=== PATIENT | male | born 1975 | race Two or more races ===

== ENCOUNTER 2019-11-22 09:28 | Outpatient (CLI) | payer OTHER | END 2019-11-22 09:33 | disposition home or self-care (01) | LOC: LAB 09:28 | DX: D50.8 Other iron deficiency anemias (principal); I10 Essential (primary) hypertension; D55.0 Anemia due to glucose-6-phosphate dehydrogenase [G6PD] deficiency; D51.1 Vitamin B12 deficiency anemia due to selective vitamin B12 malabsorption with proteinuria; D51.0 Vitamin B12 deficiency anemia due to intrinsic factor deficiency; E03.8 Other specified hypothyroidism; E06.3 Autoimmune thyroiditis; D51.3 Other dietary vitamin B12 deficiency anemia ==

== ENCOUNTER → 2019-11-22 | Outpatient (CLI) | payer OTHER | END | disposition home or self-care (01) | LOC: SONOGRAMA 10:29 | DX: D51.3 Other dietary vitamin B12 deficiency anemia (principal); E78.2 Mixed hyperlipidemia; E06.3 Autoimmune thyroiditis; E03.8 Other specified hypothyroidism; E04.2 Nontoxic multinodular goiter ==

== ENCOUNTER 2021-03-08 13:11 | Outpatient (CLI) | payer OTHER | END 2021-03-08 13:24 | disposition home or self-care (01) | LOC: SONOGRAMA 13:11 → MAMO-SONO 13:15 → SONOGRAMA 13:24 | PROVIDERS: ATTEND Internal Medicine Hematology & Oncology | DX: E04.2 Nontoxic multinodular goiter (principal); D51.3 Other dietary vitamin B12 deficiency anemia; D53.0 Protein deficiency anemia; E78.2 Mixed hyperlipidemia ==

== ENCOUNTER → 2021-03-12 08:11 | Outpatient (CLI) | payer OTHER | END | disposition home or self-care (01) | LOC: LAB 08:11 | PROVIDERS: ATTEND Internal Medicine Hematology & Oncology | DX: I10 Essential (primary) hypertension (principal); R74.02 Elevation of levels of lactic acid dehydrogenase [LDH]; K76.89 Other specified diseases of liver; R79.9 Abnormal finding of blood chemistry, unspecified; D58.0 Hereditary spherocytosis; E55.9 Vitamin D deficiency, unspecified; R97.8 Other abnormal tumor markers; R97.20 Elevated prostate specific antigen [PSA]; D59.19 Other autoimmune hemolytic anemia; D51.3 Other dietary vitamin B12 deficiency anemia; D53.0 Protein deficiency anemia; E78.2 Mixed hyperlipidemia ==

== ENCOUNTER → 2021-08-10 07:48 | Outpatient (CLI) | payer OTHER | END | disposition home or self-care (01) | LOC: LAB 07:48 | PROVIDERS: ATTEND Internal Medicine Hematology & Oncology | DX: I10 Essential (primary) hypertension (principal); R74.02 Elevation of levels of lactic acid dehydrogenase [LDH]; K76.89 Other specified diseases of liver; R79.89 Other specified abnormal findings of blood chemistry; D50.8 Other iron deficiency anemias; E55.9 Vitamin D deficiency, unspecified; E03.8 Other specified hypothyroidism; D51.3 Other dietary vitamin B12 deficiency anemia; D53.0 Protein deficiency anemia; E78.2 Mixed hyperlipidemia ==

== ENCOUNTER 2025-01-14 06:35 | Outpatient (CLI) | payer OTHER ==
[2025-01-14 07:28] LABS: HEMATOCRIT 38.8 % (39.0-48.0); MEAN CELL VOLUME 85.8 fL (80.0-100.00); MEAN CORPUSCULAR HEMOGLOBIN 28.7 pg (27.00-32.0); MEAN CORPUSCULAR HGB CONC 33.4 g/dl (32.0-36.0); PLATELET COUNT 267 K/uL (150-450); RED BLOOD COUNT 4.52 M/uL (4.00-6.00); RED CELL DISTRIBUTION WIDTH 13.5 % (11.5-14.5)
[2025-01-14 07:33] LABS: PH,URINE 5.5 (5.0-8.0); URINE APPEARANCE Clear; URINE BILIRRUBIN Negative (NEGATIVE); URINE BLOOD Negative; URINE COLOR Yellow; URINE GLUCOSE Negative (NEGATIVE); URINE KETONE Negative (NEGATIVE); URINE LEUKOCYTE Negative; URINE NITRATE Negative; URINE PROTEIN Negative (NEGATIVE); URINE UROBILINOGEN 0.2 E.U./dl
[2025-01-14 07:34] LABS: URINE WBC 1.8 uL (0.0-23.2)
[2025-01-14 07:39] LABS: URINE BACTERIA 0 uL (0.0-1933); URINE CAST 0.14 uL (0.0-1.40); URINE EPITHELIAL CELLS 0.1 uL (0.0-38.8); URINE RBC 1.1 uL (0.0-20.8)
[2025-01-14 08:08] LABS: MANUAL PLATELET COUNT 374
[2025-01-14 08:11] LABS: PLATELET ESTIMATE NORMAL (NORMAL)
[2025-01-14 08:22] LABS: % SATURACION 38.2 % (20-50); BILIRUBIN TOTAL 0.55 mg/dL (0.3-1.2); CALCIUM 8.8 mg/dL (8.5-10.1); CREATININE SERUM 1.1 mg/dL (0.70-1.30); FERRITIN 67.2 NG/ML (26-388); GFR 70.85; GLOBULINA 2.7 G/DL (2.4-3.5); POTASSIUM 4.18 mEq/L (3.5-5.1); T4 FREE 0.94 NG/ML (0.76-1.46); TOTAL PROTEIN 6.7 gm/dL (6.4-8.2); TSH 1.96 uIU/mL (0.358-3.74)
[2025-01-14 11:19] LABS: FOLIC ACID 16.66 ng/ml (4.78-20); VITAMIN D3 25 HYDROXY 48.78 ng/ml (30-120)
== END 2025-01-14 06:42 | disposition home or self-care (01) ==
LOC: LAB 06:35
PROVIDERS: ATTEND Internal Medicine Hematology & Oncology
DX: D51.3 Other dietary vitamin B12 deficiency anemia (principal); D53.0 Protein deficiency anemia; E78.2 Mixed hyperlipidemia; D50.8 Other iron deficiency anemias; R79.9 Abnormal finding of blood chemistry, unspecified; I10 Essential (primary) hypertension; R74.02 Elevation of levels of lactic acid dehydrogenase [LDH]; K76.89 Other specified diseases of liver; E55.9 Vitamin D deficiency, unspecified; E03.8 Other specified hypothyroidism; N39.0 Urinary tract infection, site not specified; R80.9 Proteinuria, unspecified; R94.4 Abnormal results of kidney function studies

== ENCOUNTER 2025-01-28 07:38 | Outpatient (CLI) | payer OTHER ==
[2025-01-28 08:54] LABS: ob NEGATIVE (NEGATIVE)
== END 2025-01-28 07:52 | disposition home or self-care (01) ==
LOC: LAB 07:38
PROVIDERS: ATTEND Internal Medicine Hematology & Oncology
DX: D72.10 Eosinophilia, unspecified (principal); D51.3 Other dietary vitamin B12 deficiency anemia; D53.0 Protein deficiency anemia; E78.2 Mixed hyperlipidemia; D50.8 Other iron deficiency anemias; R19.5 Other fecal abnormalities; Z12.11 Encounter for screening for malignant neoplasm of colon; B82.9 Intestinal parasitism, unspecified; A09 Infectious gastroenteritis and colitis, unspecified; R19.7 Diarrhea, unspecified; B78.9 Strongyloidiasis, unspecified; A03.0 Shigellosis due to Shigella dysenteriae; A02.9 Salmonella infection, unspecified; A04.5 Campylobacter enteritis; B96.81 Helicobacter pylori [H. pylori] as the cause of diseases classified elsewhere; K29.00 Acute gastritis without bleeding

== ENCOUNTER 2025-04-03 06:11 | Outpatient (CLI) | payer OTHER ==
[2025-04-03 07:21] LABS: BASO % 1.1 % (0.1-1.2); EOS # 1.07 (0.04-0.54); HEMATOCRIT 38.4 % (40.1-51.0); HEMOGLOBIN 12.7 g/dL (13.7-17.5); LYMPH # 1.98 (1.18-3.74); LYMPH % 35.5 % (19.3-53.1); MEAN CORPUSCULAR HEMOGLOBIN 28.2 pg (25.6-32.2); MONO # 0.35 (0.24-0.82); MONO % 6.3 % (4.7-12.5); NEUT # 2.11 (1.56-6.13); NEUT % 37.7 % (34.0-71.1); PLATELET COUNT 277 K/uL (163-369); RED BLOOD COUNT 4.51 M/uL (4.63-6.08); RED CELL DISTRIBUTION WIDTH 13.3 % (11.6-14.4)
[2025-04-03 07:25] LABS: EOS % 19.2 % (0.7-7.0)
[2025-04-03 08:32] LABS: ALBUMIN 3.9 gm/dL (3.4-5.0); BILIRUBIN TOTAL 0.18 mg/dL (0.3-1.2); CALCIUM 8.7 mg/dL (8.5-10.1); CREATININE SERUM 0.99 mg/dL (0.70-1.30); GFR 80.02; GLOBULINA 2.9 G/DL (2.4-3.5); POTASSIUM 4.23 mEq/L (3.5-5.1); TOTAL PROTEIN 6.8 gm/dL (6.4-8.2)
[2025-04-03 10:20] LABS: FOLIC ACID 19.52 ng/ml (4.78-20)
== END 2025-04-03 06:15 | disposition home or self-care (01) ==
LOC: LAB 06:11
PROVIDERS: ATTEND Internal Medicine Hematology & Oncology
DX: D72.10 Eosinophilia, unspecified (principal); D51.3 Other dietary vitamin B12 deficiency anemia; D53.0 Protein deficiency anemia; E78.2 Mixed hyperlipidemia; D50.8 Other iron deficiency anemias; R79.9 Abnormal finding of blood chemistry, unspecified; I10 Essential (primary) hypertension; R74.02 Elevation of levels of lactic acid dehydrogenase [LDH]; K76.89 Other specified diseases of liver; D51.1 Vitamin B12 deficiency anemia due to selective vitamin B12 malabsorption with proteinuria; D51.0 Vitamin B12 deficiency anemia due to intrinsic factor deficiency; D51.8 Other vitamin B12 deficiency anemias

== ENCOUNTER 2025-09-29 07:07 | Outpatient (CLI) | payer OTHER ==
[2025-09-29 08:28] LABS: BASO % 1.1 % (0.1-1.2); EOS # 0.63 (0.04-0.54); EOS % 11.2 % (0.7-7.0); LYMPH # 1.55 (1.18-3.74); LYMPH % 27.6 % (19.3-53.1); MEAN PLATELET VOLUME 10.40 fl (9.4-12.4); MONO # 0.35 (0.24-0.82); MONO % 6.2 % (4.7-12.5); NEUT # 3.01 (1.56-6.13); NEUT % 53.7 % (34.0-71.1); RED CELL DISTRIBUTION WIDTH 13.4 % (11.6-14.4)
[2025-09-29 09:37] LABS: ALT/SGPT 53.0 U/L (12-78); AST/SGOT 29.0 U/L (15-37); BILIRUBIN TOTAL 0.72 mg/dL (0.3-1.2); BUN CREA RATIO 19.0 (7.0-25.0); CREATININE SERUM 0.99 mg/dL (0.70-1.30); FE 141.0 ug/dl (65-175); GFR 79.69; GLOBULINA 2.8 G/DL (2.4-3.5); GLUCOSE FASTING 90.0 mg/dL (65-100); OSMOLALITY SERUM 289.0 MOSM/KG (275-295); PROSTATIC SPECIFIC ANTIGEN 1.41 NG/ML (0.010-4.00); T4 FREE 0.98 NG/ML (0.76-1.46); TSH 1.5 uIU/mL (0.358-3.74)
[2025-09-29 10:49] LABS: FOLIC ACID > 20.00 ng/ml (4.78-20)
== END 2025-09-29 07:11 | disposition home or self-care (01) ==
LOC: LAB 07:07
PROVIDERS: ATTEND Internal Medicine Hematology & Oncology
DX: D72.10 Eosinophilia, unspecified (principal); D51.3 Other dietary vitamin B12 deficiency anemia; D53.0 Protein deficiency anemia; E78.2 Mixed hyperlipidemia; D50.8 Other iron deficiency anemias; I10 Essential (primary) hypertension; R74.02 Elevation of levels of lactic acid dehydrogenase [LDH]; K76.89 Other specified diseases of liver; E03.8 Other specified hypothyroidism; R97.0 Elevated carcinoembryonic antigen [CEA]